=== PATIENT | female | born 1985 | race Caucasian/White ===

== ENCOUNTER 2016-06-13 08:29 | Emergency (ER) | payer MEDICAID ==
[2016-06-13 08:29] VITALS: BMI 30.9
[2016-06-13 08:42] VITALS: TEMP 98.8; O2SAT 100
[2016-06-13] MEDS ORDERED: Sodium Chloride 0.9% 1,000 ML IV STA (09:05)
--- NOTE | 2016-06-13 09:21 | ED PDOC ---
Arrival/HPI - General Chief Complaint: Abdominal Pain Time Seen by Provider: 06/13/16 09:02 Historian: Patient - History of Present Illness Narrative History of Present Illness (Text): 06/13/16 09:21 30 year old female presents to the emergency department with suprapubic pain for the past few days. Patient reports she had her period 10 days late. She also reports increased urinary frequency. No other complaints. Time/Duration: < week Symptom Onset: Gradual Symptom Course: Unchanged Modifying Factors (Text): None Context: Home Past Medical History - Provider Review Nursing Documentation Reviewed: Yes - Past History Past History: No Previous - Infectious Disease Hx of Infectious Diseases: None - Tetanus Immunization Tetanus Immunization: Unknown, Up to Date - Reproductive Menopause: No - Past Medical History Past Medical History: No Previous - Psychiatric Hx Depression: No Hx Emotional Abuse: No Hx Physical Abuse: No Hx Substance Use: No - Past Surgical History Past Surgical History: Unable to Obtain - Surgical History Hx Cholecystectomy: Yes - Anesthesia Hx Anesthesia: Yes - Suicidal Assessment Feels Threatened In Home Enviroment: No Family/Social History - Physician Review Nursing Documentation Reviewed: Yes Family/Social History: Unknown Family HX Smoking Status: Never Smoked Hx Alcohol Use: No Hx Substance Use: No Hx Substance Use Treatment: No Allergies/Home Meds Allergies/Adverse Reactions: Allergies No Known Allergies Allergy (Verified 04/15/14 16:37) Review of Systems - Physician Review All systems were reviewed & negative as marked: Yes - Review of Systems Gastrointestinal: Abdominal Pain (suprapubic) Genitourinary Female: Frequency (increased) Physical Exam Vital Signs Reviewed: Yes Vital Signs Temp Pulse Resp BP Pulse Ox 06/13/16 10:29 68 18 97/67 L 100 06/13/16 08:38 98.8 F 75 16 97/61 L 100 Temperature: Afebrile Blood Pressure: Hypotensive Pulse: Regular Respiratory Rate: Normal Appearance: Positive for: Well-Appearing, Non-Toxic, Comfortable Pain Distress: None Mental Status: Positive for: Alert and Oriented X 3 - Systems Exam Head: Present: Atraumatic, Normocephalic Pupils: Present: PERRL Extroacular Muscles: Present: EOMI Conjunctiva: Present: Normal Mouth: Present: Moist Mucous Membranes Neck: Present: Normal Range of Motion Respiratory/Chest: Present: Clear to Auscultation, Good Air Exchange. No: Respiratory Distress, Accessory Muscle Use Cardiovascular: Present: Regular Rate and Rhythm, Normal S1, S2. No: Murmurs Abdomen: Present: Normal Bowel Sounds, Other (Mild suprapubic cramping). No: Tenderness, Distention, Peritoneal Signs Back: Present: Normal Inspection Upper Extremity: Present: Normal Inspection. No: Cyanosis, Edema Lower Extremity: Present: Normal Inspection. No: Edema Neurological: Present: GCS=15, CN II-XII Intact, Speech Normal Skin: Present: Warm, Dry, Normal Color. No: Rashes Psychiatric: Present: Alert, Oriented x 3, Normal Insight, Normal Concentration Medical Decision Making ED Course and Treatment: Impression: 30 year old female presents to the emergency department with suprapubic pain for the past few days. Differential Diagnosis include but are not limited to: Plan: -- US OB transvaginal -- Labs -- Reassess and disposition Prior Visits: Notes and results from previous visits were reviewed. Patient last seen in ED on 04/15/14 for thumb pain and discharged home. Progress Notes: Patient states she does not want anything for pain. US OB Transvaginal Loss Control Consultant : Cha Regalado MD Impression: No intrauterine gestational sac identified. If indeed the patient is based on serum beta HCG values, the sonographic findings represent either: Very early IUP; embryonic demise; ectopic gestation. Follow-up with serial quantitative serum beta HCG measurements and post OBGYN follow-up is mandatory, since ectopic gestation cannot be excluded based only on sonographic findings. Complex left ovarian lesion with peripheral vascularity suspected to reflect corpus luteal cyst. Recommend attention on short-term follow-up. 06/13/16 10:30 Patient refused pelvic exam 06/13/16 10:41 On reevaluation, patient's abdomen is soft with minimal tenderness to palpation. No acute abd Patient does not require pain medication. Case discussed with Dr. Tamera SANCHEZ station mechanic helper, recommended patient return to ER in two days for repeat assesment. as ectopic not excluded, recommended OB f/u in 1 week. Patient instructed return precautions and verbalizes understanding. 06/13/16 11:32 06/13/16 11:33 spoke extensively bedside, about possiblilty of early preg, ectopic, misscarriage. advised ectopic not excluded. patient and family verbalize understanding. - Lab Interpretations Lab Results: 06/13/16 09:20 06/13/16 09:20 Lab Results 06/13/16 09:20: Blood Type B POSITIVE, Antibody Screen Negative, BBK History Checked No verified bt 06/13/16 09:20: Beta HCG, Quant 384.84 H 06/13/16 09:20: Sodium 138, Potassium 3.5 L, Chloride 102, Carbon Dioxide 26, Anion Gap 14, BUN 9, Creatinine 0.5, Est GFR ( Amer) > 60, Est GFR (Non- Af Amer) > 60, Random Glucose 78, Calcium 9.1, Total Bilirubin 1.0, AST 17, ALT 22, Alkaline Phosphatase 32 L, Total Protein 7.4, Albumin 4.1, Globulin 3.3, Albumin/Globulin Ratio 1.2 06/13/16 09:20: PT 10.9, INR 1.01, APTT 27.5 06/13/16 09:20: WBC 5.5, RBC 4.07, Hgb 12.4, Hct 36.0, MCV 88.5, MCH 30.5, MCHC 34.4, RDW 12.3, Plt Count 264, MPV 10.0, Gran % 56.6, Lymph % (Auto) 33.8, [place] % (Auto) 8.3 H, Eos % (Auto) 0.9 L, Baso % (Auto) 0.4, Gran # 3.12, Lymph # 1.9 , [place] # 0.5, Eos # 0.1, Baso # 0.02 06/13/16 09:15: Urine Color Yellow, Urine Appearance Sl cloudy, Urine pH 6.0, Ur Specific [place] >= 1.030, Urine Protein Negative, Urine Glucose (UA) Negative, Urine Ketones Negative, Urine Blood Moderate H, Urine Nitrate Negative , Urine Bilirubin Negative, Urine Urobilinogen 0.2, Ur Leukocyte Esterase Small H, Urine RBC 5 - 10, Urine WBC 5 - 10, Ur Epithelial Cells 3 - 4, Urine Bacteria Mod, Urine HCG, Qual Positive - RAD Interpretation Radiology Orders: 06/13/16 09:05 OB TRANSVAGINAL [US] Stat - Medication Orders Current Medication Orders: Discontinued Medications Sodium Chloride (Sodium Chloride 0.9%) 1,000 mls @ 999 mls/hr IV .Q1H1M STA Stop: 06/13/16 10:05 Last Admin: 06/13/16 09:05 Dose: 999 mls/hr - Scribe Statement The provider has reviewed the documentation as recorded by the Diann Yoder Provider Scribe Attestation: All medical record entries made by the Scribe were at my direction and personally dictated by me. I have reviewed the chart and agree that the record accurately reflects my personal performance of the history, physical exam, medical decision making, and the department course for this patient. I have also personally directed, reviewed, and agree with the discharge instructions and disposition. Disposition/Present on Arrival - Present on Arrival Any Indicators Present on Arrival: No History of DVT/PE: No History of Uncontrolled Diabetes: No Urinary Catheter: No History of Decub. Ulcer: No History Surgical Site Infection Following: Abdominal Surgery - Disposition Have Diagnosis and Disposition been Completed?: Yes Diagnosis: Threatened Disposition: HOME/ ROUTINE Disposition Time: 10:39 Condition: STABLE Discharge Instructions (ExitCare): Threatened Miscarriage (ED) Additional Instructions: please follow up with your jewelry finisher doctor in 1 week. return to er on thursday am for repeat assessment. retun immediately with worsening symptoms or concerns. Prescriptions: Cefpodoxime [Vantin] 100 mg PO BID #14 tab Referrals: Sukumar Jean-Baptiste MD [Primary Care Provider] - Follow up with primary Alek Philip DO [Staff Provider] - Follow up with primary Sesar Ruvalcaba [Medical Doctor] - Follow up with primary
[2016-06-13 09:31] LABS: URINE BILIRUBIN NEGATIVE (NEGATIVE); URINE BLOOD MODERATE (NEGATIVE); URINE GLUCOSE (UA) NEGATIVE (NEGATIVE); URINE KETONE NEGATIVE (NEGATIVE); URINE LEUKOCYTE ESTERASE SMALL Leu/uL (NEGATIVE); URINE PROTEIN NEGATIVE mg/dL (<30 mg/dL); URINE UROBILINOGEN 0.2 E.U./dL (<1 E.U./dL)
[2016-06-13 09:32] LABS: URINE APPEARANCE SL CLOUDY (CLEAR); URINE COLOR YELLOW (YELLOW)
[2016-06-13 09:43] LABS: URINE BACTERIA MOD (NEG)
[2016-06-13 09:49] LABS: ADD MANUAL DIFF? NO
[2016-06-13 09:55] LABS: BASO # 0.02 K/mm3 (0.0-2.0); BASO % 0.4 % (0.0-3.0); EOS # 0.1 (0.0-0.7); EOS % 0.9 % (1.5-5.0); GRAN # 3.12 (1.4-6.5); GRAN % 56.6 % (50.0-68.0); LYMPH # 1.9 (1.2-3.4); LYMPH % 33.8 % (22.0-35.0); MEAN CELL VOLUME 88.5 fL (80.0-105.0); MEAN CORPUSCULAR HEMOGLOBIN 30.5 pg (25.0-35.0); MEAN CORPUSCULAR HGB CONC 34.4 g/dl (31.0-37.0); MONO # 0.5 (0.1-0.6); MONO % 8.3 % (1.0-6.0); PLATELET COUNT 264 10^3/uL (120.0-450.0); RED CELL DISTRIBUTION WIDTH 12.3 % (11.5-14.5); WHITE BLOOD COUNT 5.5 10^3/ul (4.5-11.0)
[2016-06-13 10:07] LABS: INR 1.01 (0.93-1.08); PARTIAL THROMBOPLASTIN TIME 27.5 Seconds (23.7-30.8)
[2016-06-13 10:08] LABS: ALB/GLOB RATIO 1.2 (1.1-1.8); ALKALINE PHOSPHATASE 32 U/L (38-133); ALT/SGPT 22 U/L (7-56); AST/SGOT 17 U/L (15-39); BLOOD UREA NITROGEN 9 mg/dL (7-21); CALCIUM 9.1 mg/dL (8.4-10.5); CARBON DIOXIDE 26 mmol/L (21-33); CHLORIDE 102 mmol/L (98-107); GFR AFRICAN-AMERICAN > 60; GLUCOSE,RANDOM 78 mg/dL (70-110); POTASSIUM 3.5 mmol/L (3.6-5.0); SODIUM 138 mmol/L (132-148); TOTAL PROTEIN 7.4 g/dL (5.8-8.3)
--- NOTE | 2016-06-13 10:11 | US ---
Indication: Abdominal pain and Comparison: Pelvic ultrasound performed 03/03/13 Technique: Real-time transabdominal pelvic ultrasound was performed. In addition a transvaginal pelvic ultrasound was necessary to better depict pelvic anatomy Findings: The uterus measures approximately 8.6 x 5.8 x 6.0 cm. Anteverted. The endometrium measures approximately 1.6 cm and contains trace fluid. No evidence of intrauterine gestational sac. The right ovary measures 3.3 x 1.8 x 2.9 cm. The left ovary measures 3.8 x 2.5 x 3.5 cm. Complex appearing approximately 1.8 x 2.3 cm left ovarian lesion with peripheral vascularity suspected to reflect a corpus luteal cyst. Blood flow was demonstrated to both ovaries. Impression: No intrauterine gestational sac identified. If indeed the patient is based on serum beta HCG values, the sonographic findings represent either: Very early IUP; embryonic demise; ectopic gestation. Follow-up with serial quantitative serum beta HCG measurements and post OBGYN follow-up is mandatory, since ectopic gestation cannot be excluded based only on sonographic findings. Complex left ovarian lesion with peripheral vascularity suspected to reflect corpus luteal cyst. Recommend attention on short-term follow-up.
[2016-06-13 10:48] VITALS: BP 97/67; PULSE 68; RESP 18
== END 2016-06-13 10:53 | disposition home or self-care (01) ==
LOC: ED 08:29
DX: O20.0 Threatened abortion (principal)
CPT/HCPCS: 76817; 80053; 81001; 84702; 84703; 85025; 85610; 85730; 86850; 86900; 87086; 96360; 99284; J7040

== ENCOUNTER 2016-06-15 12:21 | Emergency (ER) | payer MEDICAID ==
[2016-06-15 12:22] VITALS: BMI 30.9
[2016-06-15 12:37] VITALS: O2SAT 100
--- NOTE | 2016-06-15 12:52 | ED PDOC ---
Arrival/HPI - General Chief Complaint: Medical Clearance Time Seen by Provider: 06/15/16 12:38 Historian: Patient - History of Present Illness Narrative History of Present Illness (Text): 06/15/16 12:51 Patient is a 30 year old female who presents to the emergency department for repeat beta HCG level. Patient was seen ED 2 days ago with abdominal pain which she reports has improved. Denies vaginal bleeding or urinary symptoms. Patient reports LMP 05/10/16. Time/Duration: < week Symptom Onset: Gradual Symptom Course: Improving Modifying Factors (Text): None Associated Symptoms (Text): None Past Medical History - Provider Review Nursing Documentation Reviewed: Yes - Past History Past History: No Previous - Infectious Disease Hx of Infectious Diseases: None - Tetanus Immunization Tetanus Immunization: Unknown, Up to Date - Past Medical History Past Medical History: No Previous - Psychiatric Hx Depression: No Hx Emotional Abuse: No Hx Physical Abuse: No Hx Substance Use: No - Past Surgical History Past Surgical History: Unable to Obtain - Surgical History Hx Cholecystectomy: Yes - Anesthesia Hx Anesthesia: No Hx Anesthesia Reactions: No Hx Malignant Hyperthermia: No - Suicidal Assessment Feels Threatened In Home Enviroment: No Family/Social History - Physician Review Nursing Documentation Reviewed: Yes Family/Social History: Unknown Family HX Smoking Status: Never Smoked Hx Alcohol Use: No Hx Substance Use: No Hx Substance Use Treatment: No Allergies/Home Meds Allergies/Adverse Reactions: Allergies No Known Allergies Allergy (Verified 06/15/16 12:37) Home Medications: Home Meds Medication Instructions Recorded Confirmed No Known Home Med 06/15/16 06/15/16 Review of Systems - Review of Systems Eyes: absent: Vision Changes ENT: absent: Hearing Changes Respiratory: absent: SOB Cardiovascular: absent: Chest Pain Gastrointestinal: absent: Nausea, Vomiting Genitourinary Female: absent: Dysuria, Hematuria, Vaginal Bleeding Musculoskeletal: absent: Neck Pain Skin: absent: Rash Neurological: absent: Headache, Dizziness Endocrine: absent: Diaphoresis Psychiatric: absent: Depression Physical Exam - Physical Exam Narrative Physical Exam (Text): Head: Atraumatic. Normocephalic. Eyes: PERRL. EOMI. Conjunctivae are not pale. ENT: Mucous membranes are moist and intact. Oropharynx is clear and symmetric. Neck: Supple. Full ROM. No JVD. No lymphadenopathy. Cardiovascular: Regular rate. Regular rhythm. No murmurs, rubs, or gallops. Distal pulses are 2+ and symmetric. Pulmonary/Chest: No evidence of respiratory distress. Clear to auscultation bilaterally. No wheezing, rales or rhonchi. Abdominal: Soft and non-distended. There is no tenderness. No rebound, guarding, or rigidity. No organomegaly. Good bowel sounds. Back: No CVA tenderness. Extremities: No edema. No cyanosis. No clubbing. Full range of motion in all extremities. No calf tenderness. Skin: Skin is warm and dry. No petechiae. No purpura. Neurological: Alert, awake, and oriented to person, place, time, and situation. Normal speech. Psychiatric: Good eye contact. Normal interaction, affect, and behavior. Vital Signs Reviewed: Yes Vital Signs Temp Pulse Resp BP Pulse Ox 06/15/16 12:32 98.6 F 82 19 103/69 100 Temperature: Afebrile Blood Pressure: Normal Pulse: Regular Respiratory Rate: Normal Appearance: Positive for: Well-Appearing, Non-Toxic, Comfortable Pain Distress: None Mental Status: Positive for: Alert and Oriented X 3 Medical Decision Making ED Course and Treatment: Differential Diagnosis included but are not limited to: Plan: Due to inconclusive ultrasound report from last visit, will get repeat beta HCG Prior Visits: Notes and results from previous visits were reviewed. Patient last seen in the ED on 06/13/16 for abdominal pain and discharged home. 06/13/16: US OB Transvaginal Imaging Assistant: Cha Regalado MD Impression: No intrauterine gestational sac identified. If indeed the patient is based on serum beta HCG values, the sonographic findings represent either: Very early IUP; embryonic demise; ectopic gestation. Follow-up with serial quantitative serum beta HCG measurements and post OBGYN follow-up is mandatory, since ectopic gestation cannot be excluded based only on sonographic findings. Complex left ovarian lesion with peripheral vascularity suspected to reflect corpus luteal cyst. Recommend attention on short-term follow-up. 06/13/16: Beta HCG, Quant 384.84 H Progress Notes: 06/15/16 14:04 Patient is cv stable, NO bleeding, no hypotension. Beta hcg more than double from previous visit. As she has NO pain, no bleeding, will discharge with follow-up with her cable worker helper. - Lab Interpretations Lab Results: 06/15/16 13:19 06/15/16 13:19 Lab Results 06/15/16 13:19: Beta HCG, Quant 1136.90 H 06/15/16 13:19: Sodium 140, Potassium 3.6, Chloride 105, Carbon Dioxide 25, Anion Gap 14, BUN 10, Creatinine 0.6, Est GFR ( Amer) > 60, Est GFR (Non- Af Amer) > 60, Random Glucose 85, Calcium 10.0, Total Bilirubin 1.0, AST 18, ALT 26, Alkaline Phosphatase 36 L, Total Protein 8.3, Albumin 4.4, Globulin 3.8 , Albumin/Globulin Ratio 1.2 06/15/16 13:19: WBC 6.2, RBC 4.27, Hgb 13.2, Hct 37.7, MCV 88.3, MCH 30.9, MCHC 35.0, RDW 12.4, Plt Count 281, MPV 10.1, Gran % 61.2, Lymph % (Auto) 28.4, [place] % (Auto) 9.5 H, Eos % (Auto) 0.6 L, Baso % (Auto) 0.3, Gran # 3.82, Lymph # 1.8 , [place] # 0.6, Eos # 0.0, Baso # 0.02 - Scribe Statement The provider has reviewed the documentation as recorded by the Diann Yoder Provider Scribe Attestation: All medical record entries made by the Scribe were at my direction and personally dictated by me. I have reviewed the chart and agree that the record accurately reflects my personal performance of the history, physical exam, medical decision making, and the department course for this patient. I have also personally directed, reviewed, and agree with the discharge instructions and disposition. Disposition/Present on Arrival - Present on Arrival Any Indicators Present on Arrival: No History of DVT/PE: No History of Uncontrolled Diabetes: No Urinary Catheter: No History of Decub. Ulcer: No History Surgical Site Infection Following: Abdominal Surgery - Disposition Have Diagnosis and Disposition been Completed?: Yes Diagnosis: Disposition: HOME/ ROUTINE Disposition Time: 14:06 Patient Plan: Discharge Patient Problems: Current Active Problems Problem Status Onset Acute Condition: GOOD Discharge Instructions (ExitCare): Threatened Miscarriage (ED), (ED) Additional Instructions: You must follow-up with your enlisted aircrew/aerial observer/gunner TOMORROW. If you develop ANY pain, ANY bleeding, any fevers or chills, any urinary symptoms, any abdominal pain, any nausea or vomiting, you must get re-checked immediately. Your "beta HCG" today is 1136.90. You must have repeat ultrasound with your cable worker helper.
[2016-06-15 13:20] LABS: ADD MANUAL DIFF? NO
[2016-06-15 13:29] LABS: BASO # 0.02 K/mm3 (0.0-2.0); BASO % 0.3 % (0.0-3.0); EOS % 0.6 % (1.5-5.0); GRAN # 3.82 (1.4-6.5); GRAN % 61.2 % (50.0-68.0); HEMATOCRIT 37.7 % (36.0-48.0); LYMPH # 1.8 (1.2-3.4); LYMPH % 28.4 % (22.0-35.0); MEAN CELL VOLUME 88.3 fL (80.0-105.0); MEAN CORPUSCULAR HEMOGLOBIN 30.9 pg (25.0-35.0); MEAN PLATELET VOLUME 10.1 fl (7.0-11.0); MONO # 0.6 (0.1-0.6); MONO % 9.5 % (1.0-6.0); PLATELET COUNT 281 10^3/uL (120.0-450.0); RED CELL DISTRIBUTION WIDTH 12.4 % (11.5-14.5); WHITE BLOOD COUNT 6.2 10^3/ul (4.5-11.0)
[2016-06-15 13:41] LABS: ALB/GLOB RATIO 1.2 (1.1-1.8); ALKALINE PHOSPHATASE 36 U/L (38-133); ALT/SGPT 26 U/L (7-56); AST/SGOT 18 U/L (15-39); BLOOD UREA NITROGEN 10 mg/dL (7-21); CARBON DIOXIDE 25 mmol/L (21-33); CHLORIDE 105 mmol/L (98-107); GFR AFRICAN-AMERICAN > 60; GLUCOSE,RANDOM 85 mg/dL (70-110); POTASSIUM 3.6 mmol/L (3.6-5.0); SODIUM 140 mmol/L (132-148); TOTAL PROTEIN 8.3 g/dL (5.8-8.3)
[2016-06-15 14:07] VITALS: TEMP 98.7
[2016-06-15 15:05] VITALS: BP 110/60; PULSE 70; RESP 17
== END 2016-06-15 15:05 | disposition home or self-care (01) ==
LOC: ED 12:21
DX: O26.899 Other specified pregnancy related conditions, unspecified trimester (principal); R10.9 Unspecified abdominal pain

== ENCOUNTER 2016-07-10 09:55 | Emergency (ER) | payer MEDICAID ==
[2016-07-10 09:56] VITALS: BMI 30.9
[2016-07-10 10:06] VITALS: BP 104/65; PULSE 82; RESP 16; TEMP 98.8; O2SAT 100
[2016-07-10] MEDS ORDERED: Sodium Chloride 0.9% 1,000 ML IV STA (10:10)
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
[2016-07-10 10:46] LABS: ADD MANUAL DIFF? NO
[2016-07-10 11:00] LABS: ALB/GLOB RATIO 1.5 (1.1-1.8); ALKALINE PHOSPHATASE 35 U/L (38-133); ALT/SGPT 29 U/L (7-56); AST/SGOT 19 U/L (15-39); BILIRUBIN,TOTAL 0.8 mg/dL (0.2-1.3); BLOOD UREA NITROGEN 9 mg/dL (7-21); CARBON DIOXIDE 25 mmol/L (21-33); CHLORIDE 105 mmol/L (98-107); GFR AFRICAN-AMERICAN > 60; GLUCOSE,RANDOM 85 mg/dL (70-110); POTASSIUM 3.6 mmol/L (3.6-5.0); SODIUM 136 mmol/L (132-148); TOTAL PROTEIN 6.9 g/dL (5.8-8.3)
[2016-07-10 11:06] LABS: HEMATOCRIT 32.9 % (36.0-48.0); LYMPH # 1.8 (1.2-3.4); MEAN CORPUSCULAR HGB CONC 35.3 g/dl (31.0-37.0); MONO # 0.5 (0.1-0.6)
[2016-07-10 12:00] LABS: BASO # 0.02 K/mm3 (0.0-2.0); BASO % 0.3 % (0.0-3.0); EOS % 0.3 % (1.5-5.0); GRAN # 5.14 (1.4-6.5); GRAN % 68.7 % (50.0-68.0); LYMPH % 23.6 % (22.0-35.0); MEAN CELL VOLUME 87.3 fL (80.0-105.0); MEAN CORPUSCULAR HEMOGLOBIN 30.8 pg (25.0-35.0); MEAN PLATELET VOLUME 10.5 fl (7.0-11.0); MONO % 7.1 % (1.0-6.0); PLATELET COUNT 238 10^3/uL (120.0-450.0); RED CELL DISTRIBUTION WIDTH 12.1 % (11.5-14.5); WHITE BLOOD COUNT 7.5 10^3/ul (4.5-11.0)
[2016-07-10 14:06] LABS: URINE APPEARANCE SL CLOUDY (CLEAR); URINE BILIRUBIN NEGATIVE (NEGATIVE); URINE BLOOD MODERATE (NEGATIVE); URINE COLOR YELLOW (YELLOW); URINE GLUCOSE (UA) NEGATIVE (NEGATIVE); URINE KETONE NEGATIVE (NEGATIVE)
[2016-07-10 14:07] LABS: URINE EPITHELIAL CELLS MANY /hpf (0-5); URINE LEUKOCYTE ESTERASE NEGATIVE Leu/uL (NEGATIVE); URINE PROTEIN TRACE mg/dL (<30 mg/dL)
[2016-07-10 14:08] LABS: URINE BACTERIA SMALL (NEG)
--- NOTE | 2016-07-10 14:34 | US ---
PROCEDURE: First trimester ultrasound. HISTORY: , pelvic discomfort COMPARISON: 06/13/2016.. TECHNIQUE: Standard protocol for this study/examination. FINDINGS: Cardiac activity: Present Rate: 170 BPM Measurements: Naplate rump length: 2.09 cm Gestational age based on CRL 8 weeks 5 days Gestational age based on gestational sac measurement 8 weeks 3 days Gestational age derived from LMP: 8 weeks 5 days MARY CARMEN based on LMP: 02/14/2017. MARY CARMEN based on biometry: 02/15/2017. ADNEXA: Right 1.4 x 3.6 cm. Normal Doppler arterial waveform documented. Increased vascularity. Symmetrical. Left: 2.5 x 3.9 cm. Normal Doppler arterial waveform documented. Simple cyst 1.6 x 1.7 cm Increased vascularity venous likely pelvic congestion syndrome. Fluid in the cul-de-sac: IMPRESSION: Eight weeks 4 days live intrauterine gestation. Gestational concordance documented.
== END 2016-07-10 13:55 | disposition left against medical advice (07) ==
LOC: ED 09:55
DX: O26.91 Pregnancy related conditions, unspecified, first trimester (principal); Z3A.08 8 weeks gestation of pregnancy; R10.2 Pelvic and perineal pain